=== PATIENT | female | born 1980 ===

== ENCOUNTER 2023-07-29 11:44 | Emergency (ER) | payer MEDICARE, MEDICAID ==
[~2023-07-29] VITALS: Ht 160 cm; Wt 58.0 kg
[2023-07-29 11:56] VITALS: BP 151/94
--- NOTE | 2023-07-29 12:39 | ED General ---
General Chief Complaint: COVID19 Suspect/Confirmed Stated Complaint: VORA; CHEST CONGESTION; RT FACIAL NUMBNESS Nursing Triage Note: Patient has presented to ER with cc of cough, runny nose with green drainage, a headache, some nausea, and a sore throat for the last 2 days. She has taken mucinex for her symptoms. Source of Information: Patient Exam Limitations: No Limitations History of Present Illness Date Seen by Provider: Jul 29, 2023 Time Seen by Provider: 11:55 Initial Comments This 43-year-old woman presents to the emergency room with flulike symptoms incl uding headache, cough, runny nose, and nausea for 2 or 3 days. She also has MS and believes she is experiencing an exacerbation of MS symptoms. She has had some numbness of the right face extending down into her neck for the past 2 days as well as some tremors and muscle twitching. Her headache is fairly intense at this time. She took ibuprofen 400 mg at 0900. She had been seeing a neurologist in [place] for her MS, but discontinued treatment when she moved to [place] about a month ago. She had been taking Lemtrada and reports her neurologist recommended she start Ocrevus. She has not established with a primary care provider in [place] yet. She additionally takes valproic acid for migraine prevention, gabapentin, sertraline, omeprazole, and Mucinex. Allergies and Home Medications Allergies Coded Allergies: No Known Drug Allergies (Unverified , 07/29/23) Patient Home Medication List Home Medication List Reviewed: Yes Prednisone (Prednisone) 20 Mg Tab, 1 TAB PO UD Prescribed by: PALOMA POTTS on 07/29/23 1304 Review of Systems Review of Systems Constitutional: no symptoms reported; No fever EENTM: see HPI Respiratory: no symptoms reported Cardiovascular: no symptoms reported Gastrointestinal: see HPI Genitourinary: no symptoms reported : No Musculoskeletal: no symptoms reported Skin: no symptoms reported Psychiatric/Neurological: See HPI Hematologic/Lymphatic: No Symptoms Reported Immunological/Allergic: no symptoms reported Past Rzuujrg-Vwslif-Shlmua Hx Patient Social History Tobacco Use?: No Use of E-Cig and/or Vaping dev: No Substance use?: No Alcohol Use?: Yes Alcohol Frequency: Once in a while Past Medical History Surgeries: Yes Section (X2) Respiratory: No Cardiac: Yes Hypertension Neurological: Yes Headaches /Migraines, Multiple Sclerosis : No Reproductive Disorders: No Genitourinary: No Gastrointestinal: No Musculoskeletal: No Endocrine: No HEENT: No Cancer: No Psychosocial: No Physical Exam Vital Signs Vital Signs - First Documented 07/29/23 11:56 Temp 36.8 Pulse 106 Resp 16 B/P (MAP) 151/94 (113) Pulse Ox 100 O2 Delivery Room Air Capillary Refill : Height, Weight, BMI Height: '" Weight: lbs. oz. kg; 22.00 BMI Method: General Appearance: No Apparent Distress, WD/WN, Thin, Other (Ill-appearing) HEENT: PERRL/EOMI, TMs Normal (Right), Normal ENT Inspection, Pharynx Normal, TM Abnormal (L) (Obscured by cerumen) Neck: Normal Inspection Respiratory: Lungs Clear, Normal Breath Sounds, No Accessory Muscle Use Cardiovascular: Regular Rate, Rhythm, No Edema, No Murmur Gastrointestinal: Non Tender, Soft Extremity: Normal Inspection, No Pedal Edema Neurologic/Psychiatric: Alert, Oriented x3; No Motor Weakness; Sensory Deficit (Sensory perception deficit on the right face), Other (tremors) Skin: Normal Color, Warm/Dry Progress/Results/Core Measures Suspected Sepsis SIRS Temperature: Pulse: 106 Respiratory Rate: 16 Blood Pressure 151 /94 Mean: 113 Results/Orders Lab Results Laboratory Tests Test 07/29/23 12:01 Range/Units Influenza Type A (RT-PCR) Not Detected Not Detecte Influenza Type B (RT-PCR) Not Detected Not Detecte SARS-CoV-2 RNA (RT-PCR) Not Detected Not Detecte My Orders Orders - PALOMA WEBB MD Covid 19 Inhouse Test (07/29/23 12:30) Influenza A And B By Pcr (07/29/23 12:30) Vital Signs/I&O 07/29/23 11:56 Temp 36.8 Pulse 106 Resp 16 B/P (MAP) 151/94 (113) Pulse Ox 100 O2 Delivery Room Air Capillary Refill : Blood Pressure Mean: 113 Progress Note : Progress Note Influenza and COVID-19 swabs were negative. Patient was requesting help with her MS exacerbation. I do not have records to confirm her MS diagnosis or prior MS treatment. She also has not currently established with a provider in the [facility]. I am therefore hesitant to prescribe the extremely high doses of steroids recommended for MS flare. I discussed the situation with Dr. Sotelo. We will secure her follow-up at the [facility] clinic and prescribed a modified high- dose steroid course starting with prednisone 80 mg daily and tapering down over a 12-day period of time. An appointment was made for her at the [facility] clinic 5 days from now. See discharge instructions for further discussion. Departure Impression Primary Impression: Upper respiratory infection Qualified Codes: J06.9 - Acute upper respiratory infection, unspecified Additional Impression: Exacerbation of multiple sclerosis Disposition: HOME, SELF-CARE Condition: Stable Departure-Patient Inst. Decision time for Depature: 13:02 Referrals: [facility],LOCAL PHYSICIAN (PCP) Primary Care Physician Patient Instructions: Multiple sclerosis in adults, Upper Respiratory Infection ED Add. Discharge Instructions: Take the prednisone steroids as prescribed. Take with food or milk to avoid upset stomach. You may take the pills all at once or spread them out throughout the day. It is better to take them early in the day to avoid sleep disturbance. An appointment was made for you at the [facility] [place] with Tresa Mansfiled on August 03, at 2 PM. Discuss further treatment for MS with the primary care clinic at that appointment. Return to care if you have worsening symptoms despite following these instructions. All discharge instructions reviewed with patient and/or family. Voiced understanding. Scripts Prednisone (Prednisone) 20 Mg Tab 1 TAB PO UD, #30 TAB 0 Refills Taper: 4 tabs daily x 3 days, then 3 tabs daily x 3 days, then 2 tabs daily x 3 days, then 1 tab daily x 3 days Prov: PALOMA WEBB MD 07/29/23 Copy Copies To 1: TOÑO SOTELO MD Copies To 2: [facility] PALOMA WEBB MD Jul 29, 2023 12:39
[2023-07-29] MEDS ORDERED: PRD20T PO (13:04)
== END 2023-07-29 13:22 | disposition home or self-care (01) ==
LOC: ER FS 11:48
DX: J06.9 Acute upper respiratory infection, unspecified (principal); G35 Multiple sclerosis; Z20.822 Contact with and (suspected) exposure to COVID-19
CPT/HCPCS: 87636; 99283